=== PATIENT | female | born 1985 | race American Indian/Alaskan Native ===

== ENCOUNTER 2018-06-15 21:01 | Emergency (ER) | payer MEDICAID, OTHER ==
[2018-06-15] MEDS ORDERED: NACL 0.9% 1000 ML 1,000 ML ONE (21:31)
[2018-06-15] MEDS ORDERED: NACL 0.9% 1000 ML 1,000 ML IV ONE (21:43)
[2018-06-15 22:05] LABS: Basophils % (Auto) 0.6 % (0.0-1.8); Eosinophils # (Auto) 0.3 K/mm3 (0.0-0.4); Eosinophils % (Auto) 4.1 % (0.0-4.3); Hemoglobin 14.1 gm/dl (10.1-14.3); Lymphocytes # (Auto) 1.9 K/mm3 (1.2-5.4); Lymphocytes % (Auto) 30.9 % (13.4-35.0); Mean Corpuscular HGB Conc 33 % (30-34); Mean Corpuscular Volume 85 fl (79-97); Monocytes # (Auto) 0.5 K/mm3 (0.0-0.8); Monocytes % (Auto) 8.1 % (0.0-7.3); Platelet Count 291 K/mm3 (140-440); Red Blood Count 5.09 M/mm3 (3.65-5.03); Red Cell Distribution Width 13.8 % (13.2-15.2)
[2018-06-15 22:18] LABS: BUN/Creatinine Ratio 8; Blood Urea Nitrogen 6 mg/dL (7-17); Calcium 7.9 mg/dL (8.4-10.2); Hemolysis Index 10
--- NOTE | 2018-06-15 23:41 | XRay Report ---
FINAL REPORT EXAM: XR HAND 3+V LT HISTORY: pain and swelling TECHNIQUE: 3 views of left hand PRIORS: None. FINDINGS: No fracture is identified. No dislocation seen. Joint spaces are within normal limits. No erosive bon y change identified. Carpal bones maintain normal alignment. Distal radius and ulna are intact. No r adiopaque foreign bodies seen. IMPRESSION: Negative hand series
[2018-06-16 00:28] VITALS: BP 108/74
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
== END 2018-06-16 01:00 | disposition home or self-care (01) ==
LOC: ED 21:01
DX: S63.633A Sprain of interphalangeal joint of left middle finger, initial encounter (principal); Y04.2XXA Assault by strike against or bumped into by another person, initial encounter; Y93.89 Activity, other specified; Y99.8 Other external cause status; Y92.099 Unspecified place in other non-institutional residence as the place of occurrence of the external cause
CPT/HCPCS: 29130; 36415; 73130; 80048; 84703; 85025; 93005; 93010; 99284; J7030

== ENCOUNTER 2018-07-15 16:42 | Emergency (ER) | payer SELFPAY ==
[2018-07-15 18:01] VITALS: BP 119/78
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
[2018-07-15] MEDS ORDERED: BOOSTRIX IM ONE (19:39)
[2018-07-15] MEDS ORDERED: NORCO 5/325 PO ONE (19:39)
[2018-07-15] MEDS ORDERED: XYLOCAINE 1% MPF 5 mL INFILTRATI ONE (19:39)
--- NOTE | 2018-07-15 19:49 | XRay Report ---
FINAL REPORT EXAM: XR HAND BILAT 3+V HISTORY: multiple lacerations to [place] hands TECHNIQUE: Three views of the bilateral hands, 6 views total PRIORS: None. FINDINGS: Right hand: The bones are normally aligned and mineralized. The joint spaces are well-preserved. Ther e is no evidence of acute fracture. The soft tissues are unremarkable. Left hand: The bones are normally aligned and mineralized. The joint spaces are well-preserved. There is no evidence of acute fracture. The soft tissues are unremarkable. IMPRESSION: No evidence of acute fracture or foreign body.
--- NOTE | 2018-07-15 20:12 | Emergency Department Report ---
- General Chief Complaint: Wound/Laceration Stated Complaint: LACERATION ON HANDS Time Seen by Provider: 07/15/18 17:58 Source: patient Mode of arrival: Ambulatory Limitations: No Limitations - History of Present Illness Initial Comments: Patient is 33-year-old female who presents for bilateral hand lacerations states she was on the glass slipped cutting her right third and fourth digit left third digit controlled by direct pressure range of motion intact is no deformity pain is 5/10 last tetanus unknown Onset/Timin -: hour(s) Extremity Location: Left: Hand, Right: Hand Place: home Patient Tetanus UTD: No Context: accidental Associated Symptoms: pain - Related Data Previous Rx's Medication Instructions Recorded Last Taken Type Cyclobenzaprine [Flexeril 10mg] 10 mg PO Q8H PRN #15 tablet 07/03/14 Unknown Rx HYDROcodone/APAP 5-325 [[place] 1 each PO Q6HR PRN #12 tablet 07/03/14 Unknown Rx 5-325 mg TAB] Sulfamethoxazole/Trimethoprim 1 each PO Q12H #6 tablet 07/03/14 Unknown Rx [Bactrim Ds] HYDROcodone/APAP 10-325 [[place] 1 each PO Q4-6H PRN #20 tablet 01/04/15 Unknown Rx 10/325] Cephalexin [Keflex Oral Liq 250 500 mg PO Q12HR #1 bottle 02/02/15 Unknown Rx mg/5 ML] traMADol [Ultram] 50 mg PO Q6HR PRN #20 tablet 02/02/15 Unknown Rx Amoxicillin/K Clav Tab [Augmentin 1 tab PO Q12HR #20 tab 12/13/15 Unknown Rx 875 mg] Loratadine [Claritin] 10 mg PO DAILY #30 tablet 12/13/15 Unknown Rx Ibuprofen [Motrin 600 MG tab] 600 mg PO Q8H PRN #30 tablet 12/14/15 Unknown Rx Prednisone [predniSONE 10 mg 10 mg PO .TAPER #1 tab.ds.pk 12/14/15 Unknown Rx (6-Day Pack, 21 Tabs)] Ibuprofen [Motrin] 600 mg PO Q8H PRN #20 tablet 06/16/18 Unknown Rx traMADol [Ultram] 50 mg PO Q6HR PRN #10 tablet 06/16/18 Unknown Rx Cephalexin [Keflex] 500 mg PO TID 10 Days #30 capsule 07/15/18 Unknown Rx traMADol [Ultram] 50 mg PO Q6HR PRN #12 tablet 07/15/18 Unknown Rx Allergies Allergy/AdvReac Type Severity Reaction Status Date / Time No Known Allergies Allergy Unverified 07/03/14 12:15 ED Review of Systems ROS: Stated complaint: LACERATION ON HANDS Other details as noted in HPI Constitutional: denies: chills, fever Eyes: denies: eye pain, eye discharge, vision change ENT: denies: ear pain, throat pain Respiratory: denies: cough, shortness of breath, wheezing Cardiovascular: denies: chest pain, palpitations Endocrine: no symptoms reported Gastrointestinal: denies: abdominal pain, nausea, diarrhea Genitourinary: denies: urgency, dysuria, discharge Musculoskeletal: other (hand laceration) Skin: other (small laceration bilat hand and finger ). denies: rash, lesions Neurological: denies: headache, weakness, paresthesias Psychiatric: denies: anxiety, depression Hematological/Lymphatic: denies: easy bleeding, easy bruising ED Past Medical Hx - Social History Smoking Status: Current Every Day Smoker Substance Use Type: None - Medications Home Medications: Home Medications Medication Instructions Recorded Confirmed Last Taken Type Cyclobenzaprine [Flexeril 10mg] 10 mg PO Q8H PRN #15 tablet 07/03/14 12/13/15 Unknown Rx HYDROcodone/APAP 5-325 [[place] 1 each PO Q6HR PRN #12 tablet 07/03/14 12/13/15 Unknown Rx 5-325 mg TAB] Sulfamethoxazole/Trimethoprim 1 each PO Q12H #6 tablet 07/03/14 12/13/15 Unknown Rx [Bactrim Ds] HYDROcodone/APAP 10-325 [[place] 1 each PO Q4-6H PRN #20 tablet 01/04/15 12/13/15 Unknown Rx 10/325] Cephalexin [Keflex Oral Liq 250 500 mg PO Q12HR #1 bottle 02/02/15 12/13/15 Unknown Rx mg/5 ML] traMADol [Ultram] 50 mg PO Q6HR PRN #20 tablet 02/02/15 12/13/15 Unknown Rx Amoxicillin/K Clav Tab [Augmentin 1 tab PO Q12HR #20 tab 12/13/15 Unknown Rx 875 mg] Loratadine [Claritin] 10 mg PO DAILY #30 tablet 12/13/15 Unknown Rx Ibuprofen [Motrin 600 MG tab] 600 mg PO Q8H PRN #30 tablet 12/14/15 Unknown Rx Prednisone [predniSONE 10 mg 10 mg PO .TAPER #1 tab.ds.pk 12/14/15 Unknown Rx (6-Day Pack, 21 Tabs)] Ibuprofen [Motrin] 600 mg PO Q8H PRN #20 tablet 06/16/18 Unknown Rx traMADol [Ultram] 50 mg PO Q6HR PRN #10 tablet 06/16/18 Unknown Rx Cephalexin [Keflex] 500 mg PO TID 10 Days #30 capsule 07/15/18 Unknown Rx traMADol [Ultram] 50 mg PO Q6HR PRN #12 tablet 07/15/18 Unknown Rx ED Physical Exam - General Limitations: No Limitations General appearance: alert, in no apparent distress - Head Head exam: Present: atraumatic, normocephalic - Eye Eye exam: Present: normal appearance, PERRL, EOMI Pupils: Present: normal accommodation - ENT ENT exam: Present: mucous membranes moist - Neck Neck exam: Present: normal inspection, full ROM. Absent: lymphadenopathy, thyromegaly - Respiratory Respiratory exam: Present: normal lung sounds bilaterally. Absent: respiratory distress, wheezes, stridor, chest wall tenderness - Cardiovascular Cardiovascular Exam: Present: regular rate, normal rhythm, normal heart sounds. Absent: systolic murmur, diastolic murmur, rubs, gallop - GI/Abdominal GI/Abdominal exam: Present: soft, normal bowel sounds - Rectal Rectal exam: Present: deferred - Extremities Exam Extremities exam: Present: normal capillary refill, other (laceration 3 digit and plam , left 3rd digit). Absent: pedal edema, joint swelling - Expanded Upper Extremity Exam Left Hand Wrist exam: Present: full ROM, tenderness, abrasion, laceration (lesss than 1 cm superficial ). Absent: swelling, ecchymosis, deformity, crepidus, dislocation, erythema, amputation, nail avulsion, subungual hematoma Neuro motor exam: Present: wrist extension intact, thumb opposition intact, thumb IP flexion intact, thumb adduction intact, fingers 2-5 abduction intact Neurosensory exam: Present: 2-point discrimination, radial nerve intact, ulnar nerve intact, median nerve intact Vascular: Present: normal capillary refill, radial pulse, brachial pulse, ulnar pulse. Absent: vascular compromise, pulse deficit radial art, pulse deficit ulnar art, pulse deficit brachial art Right Hand Wrist exam: Present: full ROM, tenderness, abrasion, laceration. Absent: swelling, ecchymosis, deformity, crepidus, dislocation, erythema, amputation, nail avulsion, subungual hematoma Neuro motor exam: Present: wrist extension intact, thumb opposition intact, thumb IP flexion intact, thumb adduction intact, fingers 2-5 abduction intact Neurosensory exam: Present: 2-point discrimination, radial nerve intact, ulnar nerve intact, median nerve intact Vascular: Present: normal capillary refill, radial pulse, brachial pulse, ulnar pulse. Absent: vascular compromise, pulse deficit radial art, pulse deficit ulnar art, pulse deficit brachial art - Back Exam Back exam: Present: normal inspection, full ROM. Absent: tenderness - Neurological Exam Neurological exam: Present: alert, oriented X3, CN II-XII intact, normal gait, reflexes normal. Absent: motor sensory deficit - Expanded Neurological Exam Expanded Patient oriented to: Present: person, place, time Speech: Present: fluid speech Cerebellar function: Finger to Nose: Normal Sensory exam: Upper Extremity Light Touch: Normal, Upper Extremity Pin Prick: Normal, Upper Extremity Temperature: Normal, UE 2 Point Discrimination: Normal Motor strength exam: RUE: 5, LUE: 5 DTR: bicep (R): 2+, bicep (L): 2+, tricep (R): 2+, tricep (L): 2+ Best Eye Response (Mark): (4) open spontaneously Best Motor Response (Mark): (6) obeys commands Best Verbal Response (Freeman): (5) oriented Mark Total: 15 - Psychiatric Psychiatric exam: Present: normal affect, normal mood - Skin Skin exam: Present: warm, dry, normal color, other (lacaeration as above ). Absent: rash ED Course Vital Signs 07/15/18 07/15/18 07/15/18 17:59 18:45 20:10 Temperature 98.3 F Pulse Rate 91 H Respiratory 16 18 16 Rate Blood Pressure 119/78 O2 Sat by Pulse 99 99 Oximetry - Laceration /Wound Repair Left Proximal Palm Finger Wound Location: upper extremity Wound Length (cm): 1 (less than 1 cm puncture ) Wound's Depth, Shape: superficial Wound Explored: clean Irrigated w/ Saline (ccs): 20 Betadine Prep?: Yes Anesthesia: 1% Lidocaine Volume Anesthetic (ccs): 1 Wound Repaired With: sutures Suture Size/Type: 4:0 Number of Sutures: 2 Sterile Dressing Applied?: Yes Progress: Left finger puncture wound proximal palmar side and Betadine solution anesthesia 1% lidocaine less than 1 mL suture closure with Prolene 2 4.0 all bleeding controlled sterile dressings applied range of motion is intact no nerve tendon or muscle involvement patient tolerated procedure with minimal distress given wound care instructions Right Hand Wound Location: upper extremity Wound Length (cm): 1 Wound's Depth, Shape: superficial Wound Explored: clean Irrigated w/ Saline (ccs): 20 Betadine Prep?: Yes Anesthesia: 1% Lidocaine Volume Anesthetic (ccs): 1 Wound Debrided: minimal Wound Repaired With: sutures Suture Size/Type: 4:0, proline Number of Sutures: 2 Layer Closure?: No Sterile Dressing Applied?: Yes Progress: Right lower lobe pulmonary function less than 1 cm no bleeding Betadine solution and anesthesia 1% lidocaine plain 1 mL suture closure with Prolene 4.02 sutures all bleeding is controlled patient tolerated procedure with minimal distress patient given wound care instructions patient verbalized agreement and understanding with same ED Medical Decision Making - Medical Decision Making Laceration repair see procedure notes these are superficial wounds total of 4 sutures patient given suture care instructions were verbalized understanding of same sterile dressings are intact DC'd home with Keflex and Ultram patient will follow was also recommended Center for wound check in 2 days return to same in 7-10 days for suture removal patient verbalized understanding the same DC'd home in stable condition at this time Critical care attestation.: If time is entered above; I have spent that time in minutes in the direct care of this critically ill patient, excluding procedure time. ED Disposition Clinical Impression: Laceration of hand Qualifiers: Encounter type: initial encounter Foreign body presence: without foreign body Laterality: left Qualified Code(s): S61.412A - Laceration without foreign body of left hand, initial encounter Abrasion of finger of left hand Qualifiers: Encounter type: initial encounter Qualified Code(s): S60.419A - Abrasion of unspecified finger, initial encounter Disposition: DC- TO HOME OR SELFCARE Is pt being admited?: No Does the pt Need Aspirin: No Condition: Stable Instructions: Laceration (ED), Suture Care (ED) Prescriptions: Cephalexin [Keflex] 500 mg PO TID 10 Days #30 capsule traMADol [Ultram] 50 mg PO Q6HR PRN #12 tablet PRN Reason: Pain Referrals: [facility] [Outside] - 3-5 Days Forms: Work/School Release Form(ED) Time of Disposition: 21:09
== END 2018-07-15 21:28 | disposition home or self-care (01) ==
LOC: ED 16:42
DX: S61.411A Laceration without foreign body of right hand, initial encounter (principal); S61.412A Laceration without foreign body of left hand, initial encounter; S60.413A Abrasion of left middle finger, initial encounter; F17.200 Nicotine dependence, unspecified, uncomplicated; W25.XXXA Contact with sharp glass, initial encounter; Y93.89 Activity, other specified; Y92.009 Unspecified place in unspecified non-institutional (private) residence as the place of occurrence of the external cause; Y99.8 Other external cause status
CPT/HCPCS: 90471; 90715

== ENCOUNTER 2020-08-15 09:09 | Emergency (ER) | payer MEDICAID ==
[2020-08-15 09:26] VITALS: BP 125/90
[2020-08-15] MEDS ORDERED: KETOROLAC 30 MG/1 ML INJ IV ONE (10:09)
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
[2020-08-15 10:38] LABS: Bilirubin,Urine NEG (Negative); Blood,Urine LG (Negative); Color,Urine Yellow (Yellow); Mucus,Urine FEW /HPF; Urobilinogen,Urine < 2.0 mg/dL (<2.0)
[2020-08-15 10:39] LABS: RBC,Urine > 182.0 /HPF (0.0-6.0); WBC,Urine > 182.0 /HPF (0.0-6.0)
[2020-08-15] MEDS ORDERED: KETOROLAC 60 MG/2 ML INJ IM ONE (10:51)
[2020-08-15 10:52] LABS: Basophils % (Auto) 0.5 % (0.0-1.8); Eosinophils # (Auto) 0.2 K/mm3 (0.0-0.4); Eosinophils % (Auto) 2.6 % (0.0-4.3); Hematocrit 33.9 % (30.3-42.9); Hemoglobin 11.4 gm/dl (10.1-14.3); Lymphocytes # (Auto) 1.5 K/mm3 (1.2-5.4); Lymphocytes % (Auto) 19.5 % (13.4-35.0); Mean Corpuscular HGB Conc 34 % (30-34); Mean Corpuscular Volume 83 fl (79-97); Monocytes # (Auto) 0.6 K/mm3 (0.0-0.8); Monocytes % (Auto) 7.5 % (0.0-7.3); Platelet Count 280 K/mm3 (140-440); Red Blood Count 4.09 M/mm3 (3.65-5.03); Red Cell Distribution Width 13.5 % (13.2-15.2)
[2020-08-15 11:17] LABS: Alanine Aminotransferase 10 units/L (7-56); Albumin 3.6 g/dL (3.9-5); Blood Urea Nitrogen 9 mg/dL (7-17); Calcium 8.3 mg/dL (8.4-10.2); Hemolysis Index 5
[2020-08-15 11:18] LABS: BUN/Creatinine Ratio 13
--- NOTE | 2020-08-15 14:09 | Cat Scan Report ---
CT abdomen pelvis w con INDICATION: Hematuria. COMPARISON: None TECHNIQUE: Abdominal and pelvic CT exam performed. All CT scans at this location are performed using CT dose reduction for ALARA by means of automated exposure control. FINDINGS: CT ABDOMEN and PELVIS: Lung Bases: No significant abnormality. Liver: No significant abnormality. Biliary: No significant abnormality. Spleen: No significant abnormality. Pancreas: No significant abnormality. Adrenals: No significant abnormality. Kidneys/Bladder: The bladder is decompressed however there is circumferential wall thickening. There is associated urothelial enhancement of the ureters extending to the renal pelvis and bladder consist ent with underlying inflammation.. Lymphatics: No lymphadenopathy. Vasculature: No significant abnormality. Bowel: No significant abnormality. Normal appendix. Pelvis: Small quantity of fluid in the rectouterine pouch. Osseous Structures: No aggressive osseous lesion. Additional Findings: None IMPRESSION: 1. Circumferential bladder wall thickening concerning for cystitis. Associated urothelial enhancement of the ureters which can be seen in the setting of ascending infection. Correlate with urinalysis. P lease note, the bladder is not well evaluated since it is underdistended. Signer Name: Raymond Crooks MD Signed: 08/15/2020 2:04 PM Workstation Name: [id number]
[2020-08-15] MEDS ORDERED: cefTRIAXone/NS 1 GM/50 ML 1 GM/50 ML BAG IV ONE (14:26)
== END 2020-08-15 17:35 | disposition home or self-care (01) ==
LOC: ED 09:09
DX: N30.90 Cystitis, unspecified without hematuria (principal); M54.5 Low back pain; Z79.899 Other long term (current) drug therapy
CPT/HCPCS: 36415; 74177; 80053; 81001; 84703; 85025; 96365; 96372; 99284; J0696; Q9967